=== PATIENT | male | born 1985 | race Caucasian/White ===

== ENCOUNTER 2017-11-25 14:51 | Emergency (ER) | payer OTHER ==
--- NOTE | 2017-11-25 16:41 | RAD ---
RIGHT TIBIA FIBULA 2 VIEWS: HISTORY: Pain. Twisting injury. COMPARISON: None. FINDINGS/IMPRESSION: The lateral aspect of the distal fibula is not included on this exam. Based on images provided, no f racture. No cortical irregularity or periosteal reaction. Note, the distal lateral fibula is not in cluded on this exam. POS: JONATHAN
--- NOTE | 2017-11-25 16:42 | ULT ---
EXAM: RIGHT LOWER EXTREMITY VENOUS ULTRASOUND WITH DOPPLER 11/25/17 HISTORY: Pain and edema. COMPARISON: None. TECHNIQUE: Reyes scale, color flow, doppler imaging with spectral waveform analysis performed in the right lower extremity system. FINDINGS: There is compressibility, presence of flow and augmentation in the common femoral vein, proximal and mid femoral vein. There is lack of compressibility, echogenic material and minimal flow in the distal femoral vein. There is lack of compressibility, lack of flow and the presence of echogenic material in the popliteal vein. There is lack of flow in the posterior tibial vein. There is flow in the great er saphenous vein and profunda vein. IMPRESSION: Thrombus in the right lower extremity deep venous system. POS: ORQUIDEA
[2017-11-25] MEDS ORDERED: Enoxaparin Sodium 100 MG/ML SYRINGE ONE (16:58)
== END 2017-11-25 17:30 | disposition home or self-care (01) ==
LOC: SCSER 14:51
DX: K57.32 Diverticulitis of large intestine without perforation or abscess without bleeding (principal)
CPT/HCPCS: 96372; J1650